=== PATIENT | female | born 1995 | race Two or more races ===

== ENCOUNTER 2025-07-29 06:30 | Day surgery (SDC) | payer MEDICAID, SELFPAY ==
--- NOTE | 2025-07-23 15:11 | ESHP_ITS ---
RE: VALENTINE MINA : 1995 DATE OF ADMISSION: 07/29/2025 DATE OF SURGERY: 07/29/2025. HISTORY OF PRESENT ILLNESS: This is a 30 year old 2 para 1-0-0-1 with due date of 02/09 with intrauterine at 12 weeks and 1 day on 07/29 who presents for placement of transvaginal cervical cerclage. Patient has a history of an incompetent cervix with a prior delivery due to incompetent cervix at 23 weeks gestation. She denies any bleeding, pelvic pain or leaking. ALLERGIES: NO KNOWN DRUG ALLERGIES. MEDICATIONS: multivitamin 1 p.o. daily. PAST MEDICAL HISTORY: Incompetent cervix, cervical dysplasia, chlamydia cervicitis in 2019, gallstones. SOCIAL HISTORY: She denies any alcohol, drug use or smoking. FAMILY HISTORY: Mother has migraine headaches. Paternal grandmother, paternal uncle and paternal aunt have diabetes. OBSTETRIC HISTORY: In 2019 a 23 week normal vaginal delivery of 1 pound 6 ounce female complicated by incompetent cervix, chorioamnionitis due to group B strep. PAST SURGICAL HISTORY: Laparoscopic cholecystectomy. REVIEW OF SYSTEMS: She denies any chest pain, palpitations, cough, fever, flank pain, shortness of breath or lower extremity pain or swelling. PHYSICAL EXAMINATION: Blood pressure 110/65, heart rate 74, respiration 18, temperature is 98.6, weight 204 pounds. HEENT: Oropharynx and sclerae are clear. LUNGS: Clear to auscultation bilaterally. HEART: Regular rate and rhythm. ABDOMEN: Nontender, non- distended. EXTREMITIES: Nontender. SKIN: No gross rashes or lesions. NEUROLOGIC: No focal deficit. ASSESSMENT AND PLAN: Intrauterine at 12 weeks and 1 day on 07/29. Incompetent cervix. Plan placement of transvaginal cervical cerclage. Informed consent was obtained. The patient was made aware of the risk, complications, alternatives and benefits of the proposed procedure and she agrees. She is aware that sometimes the procedure is not able to be completed due to technical difficulties with equipment or unforeseen circumstances. She is aware of the risk of cerclage placement including bleeding, blood transfusion, miscarriage, premature rupture of membranes, labor, chorioamnionitis, uterine infection, failure of cerclage to prevent delivery as well as cervical laceration. DT: 13:51:03 TT: 15:09:00 Ref: [id number] - TID: [id number]
[2025-07-28 07:43] VITALS: BMI 33.2
[2025-07-28 09:26] LABS: Basophils # (Auto) 0.0 Thou/mm3 (0.0-0.2); Basophils % (Auto) 0 % (0-2.5); Eosinophils # (Auto) 0.0 Thou/mm3 (0.0-0.5); Eosinophils % (Auto) 0 % (0-10); Hematocrit 35.8 % (36.0-46.0); Hemoglobin 12.6 g/dL (12.0-16.0); Immature Granulocytes Auto 0.06 Thou/mm3 (0.00-0.00); Lymphocytes # (Auto) 2.0 Thou/mm3 (1.0-4.8); Lymphocytes % (Auto) 21 % (10-50); Mean Corpuscular HGB Conc 35.2 g/dl (31.0-37.0); Mean Corpuscular Hemoglobin 29.9 pg (25.0-35.0); Mean Corpuscular Volume 85 fL (80-100); Monocytes # (Auto) 0.6 Thou/mm3 (0.0-0.8); Monocytes % (Auto) 7 % (0-12); Neutrophils # (Auto) 6.9 Thou/mm3 (1.8-7.7); Neutrophils % (Auto) 72 % (37-80); Nucleated Red Blood Cell # 0.00 Thou/mm3 (0.00-0.00); Nucleated Red Blood Cell % 0 /100 WBC (0); Platelet Count 286 Thou/mm3 (140-440); RDW Standard Deviation 44.4 fL (36.4-46.3); Red Blood Count 4.22 Miln/mm3 (4.00-5.20); White Blood Count 9.6 Thou/mm3 (3.6-11.0)
[2025-07-28 09:35] LABS: INR 0.9 (0.9-1.3); Partial Thromboplastin Time 24.7 Seconds (22.0-36.0); Prothrombin Time 10.1 Seconds (9.0-12.2)
[2025-07-28 09:36] LABS: Alanine Aminotransferase 12 U/L (10-49); Albumin, Serum 4.4 gm/dL (3.5-5.0); Albumin/Globulin Ratio 2.1 (1.2-2.2); Alkaline Phosphatase 38 U/L (46-116); Anion Gap 9 (7-16); Aspartate Amino Transferase 14 U/L (0-34); BUN/Creatinine Ratio 15 Ratio (12-20); Bilirubin,Total 0.3 mg/dL (0.3-1.2); Blood Urea Nitrogen 9 mg/dL (9-23); Calcium 9.3 mg/dL (8.3-10.6); Calcium (Corrected) 9.3 mg/dL (8.5-10.1); Carbon Dioxide 25.4 mMol/L (20.0-31.0); Chloride 109 mMol/L (98-107); Creatinine (Component) 0.6 mg/dL (0.6-1.3); Estimated Creatinine Clearance 159.3 mL/min (>60); Globulin 2.1 gm/dL (2.3-3.5); Glucose 84 mg/dL (74-106); Osmolality,Calculated 282 (275-295); Potassium 3.6 mMol/L (3.4-5.1); Sodium 143 mMol/L (136-145); Total Protein 6.5 gm/dL (5.7-8.2); eGFR > 60 See Note
[2025-07-29] VITALS (18 sets, daily range): BP systolic 95–118; BP diastolic 52–79; PULSE 69–104; RESP 15–21; TEMP 36.6–36.9; O2SAT 95–100; BMI 32.5
--- NOTE | 2025-07-29 08:51 | XR_ITS ---
EXAMINATION: age Limited TECHNIQUE: Limited transabdominal sonographic images pelvis Date and time: July 29, 2025, 0855 hours INDICATIONS: Preop cervical cerclage today FINDINGS: Cardiac motion 160 bpm IMPRESSION: Cardiac motion 158 bpm
--- NOTE | 2025-07-29 09:34 | PD.GYNPROC ---
Operative Note - AXLE POLISHER Procedure Date of procedure: 07/29/25 Procedure Performed: Transvaginal Cerclage Placement Indication: Viable IUP 12w1d. Incompetent Cervix Pre-Op diagnosis: Viable IUP 12w1d. Incompetent Cervix Post-Op diagnosis: Viable IUP 12w1d. Incompetent Cervix Anesthesia type: Spinal Procedure description: After proper informed consent was obtained.? The patient was made aware of the risk complications alternatives and benefits of the proposed procedure.? She was taken to the operating room.? She underwent placement of spinal anesthesia.? She was placed in dorsolithotomy position.? Patient voided prior to being taken to OR. She was prepped and draped in usual sterile fashion.? A timeout was performed.? A weighted speculum was placed in the posterior fornix of the vagina.? Lateral vaginal retractors were placed at 12 and 9:00 with ring forceps on the cervix in the same position.? Using the [place] 3 mm suture on a [employer] catgut half-algaaciq taper point ([id number]) needle the suture was placed beginning at 12:00 and exiting at 10:00. The lateral vaginal retractors were repositioned at 9:00 and 6:00 with ring forceps on the cervix in the same position. The needle and suture was placed at 8:00 and exiting at 6:00. The lateral vaginal retractors were repositioned at 6:00 and 3:00 with ring forceps on the cervix in the same position.? The suture and needle were placed at at 5:00 and exiting at 4:00.? The lateral vaginal retractors were placed at 3:00 and 12:00 with ring forceps on the cervix in the same position.? The suture entered at 2:00 and exiting at 12:00 to 1:00.? The suture was tied at the 12 o'clock position. Curlex Gauze was placed in the vaginal to absorb any oozing from the cervix. She tolerated the procedure well. Counts were correct. She was transfered to the recovery room in stable condition.? I discussed with the patient the intraoperative findings, expectation for recovery, post operative discharge instructions reviewed pre-op and again post-op. All questions answered.? Specimen: none Estimated blood loss (ml): 3 Findings: Grossly normal appearing cervix 3.5 cm length with cervical os closed. . Complications: none Surgical staff Dr Tijerina, Surgeon Operation Date: 07/29/25 08:30 Case Staff HANDLE MACHINE OPERATOR: Alejandra Galan Diagnosis Discharge Diagnosis (1) Incompetent cervix in : Status: Acute Problem List Completed Was Problem List Reviewed/Reconciled?: Yes
--- NOTE | 2025-07-29 09:39 | PD.ADDHP ---
Addendum History & Physical Addendum Date of report being addended: 07/29/25 Narrative: No changes in patient condition on preOp assessment. FHT 160's. No bleeding or leaking or cramping.
--- NOTE | 2025-07-29 10:04 | SUR.PHASEI ---
1004 patient arrived to recovery awake and talking with staff, breathing unlabored, vital signs stable, denies pain and nausea, dressing intact to vaginal area; peripad, no bleeding noted, post spinal anesthesia assessment via ice; patient has dermatome sensation at T-6 (Xyphoid process), will continue to monitor, patient able to move bilateral lower extremities, report received from Rosie LI/Troy ADAMS and Huy BELLO
--- NOTE | 2025-07-29 10:10 | SUR.PHASEII ---
1010 patients mother and at bedside
--- NOTE | 2025-07-29 12:47 | SUR.PHASEII ---
3658 post spinal anesthesia assessment complete, will assess patients ability to ambulate, and void in restroom prior to discharge
--- NOTE | 2025-07-29 13:06 | SUR.PHASEII ---
patient unable to void in restroom, will continue to encourage patient to drink fluids
--- NOTE | 2025-07-29 14:40 | SUR.PHASEII ---
1440 patient voided in the restroom will proceed with discharge
--- NOTE | 2025-07-29 14:49 | SUR.PHASEII ---
1449 Patient meets discharge criteria from recovery, awake and alert, breathing unlabored, vital signs stable, denies pain and nausea, assisted with dressing into her clothing by her , discharge instructions given to patient and patients , signed discharge instructions. Patient given all her belongings prior to discharge, transported via wheelchair and left in a private vehicle.
== END 2025-07-29 14:49 | disposition home or self-care (01) ==
PROVIDERS: PCP Family Medicine; Referring Provider Specialist; Visit Provider Specialist
PROC: 0UVC7ZZ Restriction of Cervix, Via Natural or Artificial Opening (ICD-10-PCS; CPT 57700; principal; 2025-07-29 08:30)
DX: O34.31 Maternal care for cervical incompetence, first trimester (principal); Z3A.12 12 weeks gestation of pregnancy
CPT/HCPCS: 59320; 36415; 76815; 80053; 85025; 85610; 85730; 86850; 86900; 86901; A4649; J2405; J2704; J2765; J3010; J3490